=== PATIENT | female | born 1960 | race American Indian/Alaskan Native ===

== ENCOUNTER 2016-12-26 13:08 | Outpatient (CLI) | payer OTHER ==
--- NOTE | 2016-12-26 14:15 | XRay Report ---
XRAY BILATERAL KNEE THREE VIEWS EACH: 12/26/16 13:08:00 CLINICAL: Bilateral knee pain. FINDINGS: Right: Severe osteoarthritis with complete loss of the medial joint space and large medial osteophytes. Widening of the lateral joint space with smaller osteophytes. Severe patellofemoral joint osteoarthritis with loss of the joint space and large osteophytes. No fracture or dislocation. No joint effusion. Normal soft tissues. Left: Severe osteoarthritis with complete loss of the medial joint space and large medial osteophytes. Narrowing of the lateral joint space with osteophytes. Severe femoral joint osteoarthritis with loss of the joint space and osteophytes. No fracture or dislocation. No joint effusion. Normal soft tissues. IMPRESSION: Severe bilateral relatively symmetric osteoarthritis with greater involvement of the medial joint spaces and the patellofemoral joints.
== END 2016-12-26 13:09 | disposition home or self-care (01) ==
LOC: SPVIMAG 13:08
PROVIDERS: ATTEND Orthopaedic Surgery
DX: M17.0 Bilateral primary osteoarthritis of knee (principal)